=== PATIENT | female | born 1975 | race Caucasian/White ===

== ENCOUNTER 2016-10-22 09:35 | Emergency (ER) | payer OTHER ==
[2016-10-22 09:35] VITALS: BMI 25.9
[2016-10-22 09:58] VITALS: TEMP 99.4
[2016-10-22] MEDS ORDERED: Sodium Chloride 0.9% 1,000 ML IV STA (10:28)
--- NOTE | 2016-10-22 10:34 | ED PDOC ---
Arrival/HPI - General Chief Complaint: Abdominal Pain Time Seen by Provider: 10/22/16 10:19 Historian: Patient - History of Present Illness Narrative History of Present Illness (Text): 10/22/16 10:36 A 40 year old female, with a past medical history of UTI, presents to the emergency department for lower abdominal discomfort, which began 1 day ago. The patient denies any nausea, vomiting, vaginal bleeding, dysuria, or any other complaints at this time. LMP: 09/05/16 Time/Duration: 24 hours (1 day ) Symptom Course: Unchanged Activities at Onset: Rest, Light Context: Home Past Medical History - Provider Review Nursing Documentation Reviewed: Yes - Infectious Disease Hx of Infectious Diseases: None - Reproductive Menopause: No - Psychiatric Hx Substance Use: No - Surgical History Hx Section: Yes - Anesthesia Hx Anesthesia: Yes Hx Anesthesia Reactions: No Hx Malignant Hyperthermia: No Family/Social History - Physician Review Nursing Documentation Reviewed: Yes Family/Social History: No Known Family HX, Unknown Family HX Smoking Status: Never Smoked Hx Alcohol Use: No Hx Substance Use: No Allergies/Home Meds Allergies/Adverse Reactions: Allergies No Known Allergies Allergy (Verified 10/22/16 09:58) Review of Systems - Physician Review All systems were reviewed & negative as marked: Yes Physical Exam - Physical Exam Narrative Physical Exam (Text): 10/22/16 10:37 - Review of Systems Constitutional: Normal. absent: Fatigue, Weight Change, Fevers Eyes: Normal ENT: Normal Respiratory: Normal absent: SOB, Cough, Sputum Cardiovascular: Normal absent: Chest pain, Palpitations, Syncope Gastrointestinal: Positive: Abdominal pain. absent: Diarrhea, Nausea, Vomiting Genitourinary: Normal. absent: Dysuria, Frequency, Hematuria Musculoskeletal: Normal. absent: Arthralgias, Back Pain, Neck Pain Skin: Normal Neurological: Normal absent: Focal Weakness Endocrine: Normal Hemo/Lymphatic: Normal Psychiatric: Normal - Physical exam Patient appears age appropriate, speaking full sentences without difficulty - Systems Exam Head: Present: Atraumatic, Normocephalic Pupils: Present: PERRL Extraocular Muscles: Present: EOMI Conjunctiva: Present: Normal Mouth: Present: Moist Mucous Membranes Neck: Present: Normal Range of Motion. No: MIDLINE TENDERNESS, Paraspinal Tenderness Respiratory/Chest: Present: Clear to Auscultation, Good Air Exchange. No: Respiratory Distress, Accessory Muscle Use, Tachypnic Cardiovascular: Present: Regular Rate and Rhythm, Normal S1, S2, Peripheral Pulses Present. No: Murmurs Abdomen: Present: Suprapubic tender to palpitation. Normal Bowel Sounds, No: Peritoneal Signs, Rebound, Guarding, Distention Back: Present: Normal Inspection. No: Midline Tenderness, Paraspinal Tenderness Upper Extremity: Present: Normal Inspection. No: Cyanosis, Edema Lower Extremity: Present: Normal Inspection. No: Edema Neurological: Present: GCS=15, Speech Normal, cranial nerves II through XII fully intact with no cerebellar abnormality, neuro-sensory fully intact. No focal neurological deficits. Skin: Present: Warm, Dry, Normal Color. No: Rashes Lymphatic: Present: OX3, NI, NC Psychiatric: Present: Alert, Oriented x 3, Normal Insight, Normal Concentration Vital Signs Reviewed: Yes Vital Signs Temp Pulse Resp BP Pulse Ox 10/22/16 13:32 62 17 111/64 98 10/22/16 13:00 61 18 106/71 99 10/22/16 11:02 64 18 104/69 98 10/22/16 09:47 99.4 F 66 20 102/68 98 Temperature: Afebrile Blood Pressure: Normal Pulse: Regular Respiratory Rate: Normal Appearance: Positive for: Well-Appearing, Non-Toxic, Comfortable Pain Distress: None Mental Status: Positive for: Alert and Oriented X 3 Medical Decision Making ED Course and Treatment: 10/22/16 10:39 Impression: A 40 year old female with lower abdominal pain. [facility] 09/05/16. POC test positive. Pt denies vaginal bleeding or spotting. No acute findings on physical examination. Differential Diagnosis included but are not limited to: Ectopic pregancy vs. UTI Plan: -- test (Positive) -- Transvaginal Ultrasound -- Labs -- Tylenol, IV fluids -- Urinalysis -- Reassess and disposition Prior Visits: Notes and results from previous visits were reviewed. Patient was last seen in the emergency department for abdonimal pain on and was discharged home. Progress Notes: 10/22/16 14:58 UA with suspicion for UTI US shows live IUP pt in no distress and denies complaints at this time pt instructed to f/u with [facility] outpatient abd soft and tolerating PO without difficulty Pt states she understands to return to the ER right away for new or worsening symptoms or for inability to f/u with PMD or specialist as instructed. Patient states that she fully agrees with and understands discharge instructions. States that she agrees with the plan and disposition. Verbalized and repeated discharge instructions and plan. I have given the patient opportunity to ask any additional questions. Msw : Bruno Jones MD PROCEDURE: OB Pelvic Ultrasound HISTORY: , abd pain COMPARISON: None available. FINDINGS: UTERUS: Gestational sac: Single intrauterine gestation. Heart rate: 149 bpm. age (Ultrasound estimated): 6 weeks Linsey-gestational hemorrhage: None. Date of delivery (Ultrasound estimated) : 06/17/2017 Uterus measures 10 x 5.9 x 6.4 cm. Normal in size and appearance. CERVIX: Long and closed. No cervical abnormality seen. RIGHT OVARY: Measures 1.2 x 0.6 x 0.7 cm. No mass lesion. Normal flow. LEFT OVARY: Measures 2.7 x 2.0 x 2.8 cm. No solid mass. Normal flow. FREE FLUID: None. OTHER FINDINGS: None. IMPRESSION: Single viable 6 week gestation. - Lab Interpretations Lab Results: 10/22/16 11:00 10/22/16 10:47 Lab Results 10/22/16 11:00: WBC 5.8, RBC 4.24, Hgb 12.6, Hct 36.2, MCV 85.4, MCH 29.7, MCHC 34.8, RDW 12.8, Plt Count 182, MPV 9.4, Gran % 66.2, Lymph % (Auto) 26.4, [place] % (Auto) 6.7 H, Eos % (Auto) 0.5 L, Baso % (Auto) 0.2, Gran # 3.83, Lymph # 1.5 , [place] # 0.4, Eos # 0.0, Baso # 0.01 10/22/16 10:47: Urine Color Light yellow, Urine Appearance Sl cloudy, Urine pH 7.0, Ur Specific [place] 1.015, Urine Protein Negative, Urine Glucose (UA) Negative, Urine Ketones Negative, Urine Blood Small H, Urine Nitrate Negative, Urine Bilirubin Negative, Urine Urobilinogen 0.2, Ur Leukocyte Esterase Small H , Urine RBC 1 - 3, Urine WBC 1 - 3, Ur Epithelial Cells 10 - 12, Urine Bacteria Mod 10/22/16 10:47: Blood Type O POSITIVE, Antibody Screen Negative, BBK History Checked Patient has bt 10/22/16 10:47: Beta HCG, Quant 90223.00 H 10/22/16 10:47: Sodium 138, Potassium 3.5 L, Chloride 100, Carbon Dioxide 28, Anion Gap 14, BUN 8, Creatinine 0.6, Est GFR ( Amer) > 60, Est GFR (Non- Af Amer) > 60, Random Glucose 81, Calcium 9.6, Total Bilirubin 0.8, AST 20, ALT 17, Alkaline Phosphatase 45, Total Protein 7.3, Albumin 4.3, Globulin 3.0, Albumin/Globulin Ratio 1.4 10/22/16 10:47: PT 11.5, INR 1.06, APTT 27.8 I have reviewed the lab results: Yes - RAD Interpretation Radiology Orders: 10/22/16 10:32 OB TRANSVAGINAL [US] Stat - Medication Orders Current Medication Orders: Discontinued Medications Acetaminophen (Tylenol 325mg Tab) 975 mg PO STAT STA Stop: 10/22/16 10:29 Last Admin: 10/22/16 10:48 Dose: 325 mg Comments: Patient refused 975mg, took 325MG. Cleared administration safety for with pharmacy. Sodium Chloride (Sodium Chloride 0.9%) 1,000 mls @ 1,000 mls/hr IV .Q1H STA Stop: 10/22/16 11:27 Last Admin: 10/22/16 10:39 Dose: 1,000 mls/hr - PA / AUTO ELECTRICIAN / Resident Statement MD/DO has reviewed & agrees with the documentation as recorded. - Scribe Statement The provider has reviewed the documentation as recorded by the Christine Mercer Provider Scribe Attestation: All medical record entries made by the Godfreyibrolanda were at my direction and personally dictated by me. I have reviewed the chart and agree that the record accurately reflects my personal performance of the history, physical exam, medical decision making, and the department course for this patient. I have also personally directed, reviewed, and agree with the discharge instructions and disposition.? Disposition/Present on Arrival - Present on Arrival Any Indicators Present on Arrival: No History of DVT/PE: No History of Uncontrolled Diabetes: No Urinary Catheter: No History of Decub. Ulcer: No History Surgical Site Infection Following: None - Disposition Have Diagnosis and Disposition been Completed?: Yes Diagnosis: Abdominal pain affecting Disposition: HOME/ ROUTINE Disposition Time: 15:02 Patient Plan: Discharge Condition: GOOD Discharge Instructions (ExitCare): Abdominal Pain in (ED), Urinary Tract Infection in (ED) Additional Instructions: PLEASE RETURN TO THE EMERGENCY DEPARTMENT FOR NEW OR WORSENING SYMPTOMS. RETURN RIGHT AWAY IF YOU CANNOT FOLLOW UP WITH YOUR PRIMARY CARE DOCTOR, CLINIC, OR SPECIALIST IN 1-2 DAYS. Prescriptions: Nitrofurantoin Macrocrystals [Macrobid] 100 mg PO BID #14 cap Referrals: PCP,NO [Primary Care Provider] - Follow up with primary Dev Hardy [Medical Doctor] - Follow up with primary Forms: [employer] ([place])
[2016-10-22 11:06] LABS: BASO # 0.01 K/mm3 (0.0-2.0); BASO % 0.2 % (0.0-3.0); EOS % 0.5 % (1.5-5.0); GRAN # 3.83 (1.4-6.5); GRAN % 66.2 % (50.0-68.0); HEMOGLOBIN 12.6 gm/dL (12.0-16.0); LYMPH # 1.5 (1.2-3.4); LYMPH % 26.4 % (22.0-35.0); MEAN CELL VOLUME 85.4 fL (80.0-105.0); MEAN CORPUSCULAR HEMOGLOBIN 29.7 pg (25.0-35.0); MEAN CORPUSCULAR HGB CONC 34.8 g/dl (31.0-37.0); MEAN PLATELET VOLUME 9.4 fl (7.0-11.0); MONO # 0.4 (0.1-0.6); MONO % 6.7 % (1.0-6.0); PLATELET COUNT 182 10^3/uL (120.0-450.0); RBC 4.24 10^6/uL (3.5-6.1); RED CELL DISTRIBUTION WIDTH 12.8 % (11.5-14.5); WHITE BLOOD COUNT 5.8 10^3/ul (4.5-11.0)
[2016-10-22 11:10] LABS: ALB/GLOB RATIO 1.4 (1.1-1.8); ALBUMIN 4.3 g/dL (3.0-4.8); ALT/SGPT 17 U/L (7-56); AST/SGOT 20 U/L (15-39); BLOOD UREA NITROGEN 8 mg/dL (7-21); CALCIUM 9.6 mg/dL (8.4-10.5); GFR AFRICAN-AMERICAN > 60; GFR NON-AFRICAN AMERICAN > 60; URINE BILIRUBIN NEGATIVE (NEGATIVE); URINE BLOOD SMALL (NEGATIVE); URINE GLUCOSE (UA) NEGATIVE (NEGATIVE); URINE LEUKOCYTE ESTERASE SMALL Leu/uL (NEGATIVE); URINE NITRATE NEGATIVE (NEGATIVE); URINE PROTEIN NEGATIVE mg/dL (<30 mg/dL); URINE UROBILINOGEN 0.2 E.U./dL (<1 E.U./dL)
[2016-10-22 11:11] LABS: INR 1.06 (0.93-1.08); PARTIAL THROMBOPLASTIN TIME 27.8 Seconds (23.7-30.8); PROTHROMBIN TIME 11.5 Seconds (9.9-11.8); URINE APPEARANCE SL CLOUDY (CLEAR); URINE COLOR LIGHT YELLOW (YELLOW)
[2016-10-22 11:20] LABS: URINE BACTERIA MOD (NEG)
[2016-10-22 13:34] VITALS: BP 111/64; PULSE 62; RESP 17; O2SAT 98
--- NOTE | 2016-10-22 14:19 | US ---
PROCEDURE: OB Pelvic Ultrasound HISTORY: , abd pain COMPARISON: None available. FINDINGS: UTERUS: Gestational sac: Single intrauterine gestation. Heart rate: 149 bpm. age (Ultrasound estimated): 6 weeks Linsey-gestational hemorrhage: None. Date of delivery (Ultrasound estimated) : 06/17/2017 Uterus measures 10 x 5.9 x 6.4 cm. Normal in size and appearance. CERVIX: Long and closed. No cervical abnormality seen. RIGHT OVARY: Measures 1.2 x 0.6 x 0.7 cm. No mass lesion. Normal flow. LEFT OVARY: Measures 2.7 x 2.0 x 2.8 cm. No solid mass. Normal flow. FREE FLUID: None. OTHER FINDINGS: None. IMPRESSION: Single viable 6 week gestation.
== END 2016-10-22 15:10 | disposition home or self-care (01) ==
LOC: ED 09:35
DX: O26.891 Other specified pregnancy related conditions, first trimester (principal); Z3A.01 Less than 8 weeks gestation of pregnancy; R10.9 Unspecified abdominal pain
CPT/HCPCS: 76817; 80053; 81001; 84702; 85025; 85610; 85730; 86850; 86900; 87086; 96360; 99284; J7040

== ENCOUNTER 2017-04-27 09:39 | Emergency (ER) | payer OTHER ==
[2017-04-27 09:39] VITALS: BMI 25.9
[2017-04-27 10:18] VITALS: RESP 18; TEMP 98.9
[2017-04-27] MEDS ORDERED: Sodium Chloride 0.9% 1,000 ML IV STA (11:05)
--- NOTE | 2017-04-27 11:09 | ED PDOC ---
Arrival/HPI - General Chief Complaint: GI Problem Time Seen by Provider: 04/27/17 10:31 Historian: Patient - History of Present Illness Narrative History of Present Illness (Text): 04/27/17 11:05 41 year old female, at gestation of 8 months, with past medical history of UTI, presents to the Emergency department complaining of hematemesis since yesterday. Patient informs multiple episodes of vomiting with blood since yesterday. Patient informs associated mild epigastric discomfort. Patient has a positive heartbeat and movement. Patient denies any leakage or vaginal bleeding. Patient denies any fever, chills, nausea, vomiting, abdominal pain, diarrhea, chest pain, shortness of breath or any other complaints. Time/Duration: 24 hours Symptom Onset: Gradual Symptom Course: Unchanged Activities at Onset: Light Context: Home Past Medical History - Provider Review Nursing Documentation Reviewed: Yes - Infectious Disease Hx of Infectious Diseases: None - Psychiatric Hx Substance Use: No - Surgical History Hx Section: Yes - Anesthesia Hx Anesthesia: Yes Hx Anesthesia Reactions: No Hx Malignant Hyperthermia: No Family/Social History - Physician Review Nursing Documentation Reviewed: Yes Family/Social History: No Known Family HX Smoking Status: Never Smoked Hx Alcohol Use: No Hx Substance Use: No Allergies/Home Meds Allergies/Adverse Reactions: Allergies No Known Allergies Allergy (Verified 10/22/16 09:58) Home Medications: Home Meds Medication Instructions Recorded Confirmed Multivit/Folic Acid/I 1 tab PO DAILY 04/27/17 04/27/17 [ Plus] Review of Systems - Physician Review All systems were reviewed & negative as marked: Yes - Review of Systems Constitutional: Normal. absent: Fevers Eyes: Normal ENT: Normal Respiratory: Normal. absent: SOB Cardiovascular: Normal. absent: Chest Pain Gastrointestinal: Hematemesis. absent: Abdominal Pain, Diarrhea, Nausea, Vomiting Genitourinary Female: Normal. absent: Vaginal Bleeding, Vaginal Discharge Musculoskeletal: Normal Skin: Normal Neurological: Normal Endocrine: Normal Hemo/Lymphatic: Normal Psychiatric: Normal Physical Exam Vital Signs Reviewed: Yes Vital Signs Temp Pulse Resp BP Pulse Ox 04/27/17 12:57 82 18 132/72 100 04/27/17 10:13 98.9 F 78 18 106/63 98 Temperature: Afebrile Blood Pressure: Normal Pulse: Regular Respiratory Rate: Normal Appearance: Positive for: Well-Appearing, Non-Toxic, Comfortable Pain Distress: None Mental Status: Positive for: Alert and Oriented X 3 - Systems Exam Head: Present: Atraumatic, Normocephalic Pupils: Present: PERRL Extroacular Muscles: Present: EOMI Conjunctiva: Present: Normal Mouth: Present: Moist Mucous Membranes Neck: Present: Normal Range of Motion Respiratory/Chest: Present: Clear to Auscultation, Good Air Exchange. No: Respiratory Distress, Accessory Muscle Use Cardiovascular: Present: Regular Rate and Rhythm, Normal S1, S2. No: Murmurs Abdomen: Present: Tenderness (mild epigastric tenderness), Normal Bowel Sounds. No: Distention, Peritoneal Signs Back: Present: Normal Inspection Upper Extremity: Present: Normal Inspection. No: Cyanosis, Edema Lower Extremity: Present: Normal Inspection. No: Edema Neurological: Present: GCS=15, CN II-XII Intact, Speech Normal Skin: Present: Warm, Dry, Normal Color. No: Rashes Psychiatric: Present: Alert, Oriented x 3, Normal Insight, Normal Concentration Medical Decision Making ED Course and Treatment: 04/27/17 11:13 Impression: 41 year old female presents to the Emergency department for hematemesis. wendi tomlinson suspected r/o pud, gastritis, uppergi bleed Plan: -- Blood type/screen -- Labs -- Protonix -- IV fluids -- Urinalysis -- Reassess and disposition Progress Notes: 04/27/17 11:49 Guaiac test performed in the presence of female scribe as geothermal electrical engineer. Negative. 04/27/17 12:44 Leaving Against Medical Advice (AMA): The patient is choosing to leave against medical advice. I have personally explained to the patient via a measurement technician ([id number]) that choosing to do so may result in permanent bodily harm or . I have discussed at great length that without further evaluation and monitoring there may be unforeseen circumstances and/or deterioration causing permanent bodily harm or as a result of their choice. The patient is alert, oriented, and shows the mental capacity to make clear decisions regarding the patients health care at this time. The patient continues to wish to leave against medical advice as translated by the measurement technician. In light of the patients decision to leave against medical advice, follow-up has been arranged and the patient is aware of the importance to following up as instructed. The patient has been advised that they should return to the emergency room immediately if they change their mind at any time, or if their condition begins to change or worsen in any way. 04/27/17 15:01 pt offered transfer for wallace thakkar and anay arroyo. h/h stable, but pt reports " lots of blood". discussed with measurement technician, pt refuses transfer signs ama - Lab Interpretations Lab Results: 04/27/17 11:30 04/27/17 11:30 Lab Results 04/27/17 11:30: Beta HCG, Quant [id number] H 04/27/17 11:30: Blood Type O POSITIVE, Antibody Screen Negative, BBK History Checked Patient has bt 04/27/17 11:30: Sodium 138, Potassium 3.7, Chloride 103, Carbon Dioxide 26, Anion Gap 12, BUN 8, Creatinine 0.5 L, Est GFR ( Amer) > 60, Est GFR (Non -Af Amer) > 60, Random Glucose 76, Calcium 9.6, Total Bilirubin 0.4, AST 30, ALT 30, Alkaline Phosphatase 81, Total Protein 6.8, Albumin 3.6, Globulin 3.1, Albumin/Globulin Ratio 1.2, Lipase 42 04/27/17 11:30: PT 11.3, INR 0.98, APTT 24.3 L 04/27/17 11:30: WBC 12.0 H D, RBC 3.92, Hgb 12.5, Hct 36.7, MCV 93.6, MCH 31.9, MCHC 34.1, RDW 14.0, Plt Count 197, MPV 10.0, Gran % 79.4 H, Lymph % (Auto) 14.2 L, [place] % (Auto) 5.8, Eos % (Auto) 0.5 L, Baso % (Auto) 0.1, Gran # 9.52 H , Lymph # (Auto) 1.7, [place] # (Auto) 0.7 H, Eos # (Auto) 0.1, Baso # (Auto) 0.01 04/27/17 11:28: Urine Color Yellow, Urine Appearance Clear, Urine pH 6.5, Ur Specific [place] 1.015, Urine Protein Trace H, Urine Glucose (UA) Negative, Urine Ketones Negative, Urine Blood Trace-intact H, Urine Nitrate Negative, Urine Bilirubin Negative, Urine Urobilinogen 0.2, Ur Leukocyte Esterase Trace H , Urine RBC 0 - 2, Urine WBC 0 - 2, Ur Epithelial Cells 10 - 12, Urine Bacteria Few, Urine HCG, Qual Positive - Medication Orders Current Medication Orders: Discontinued Medications Sodium Chloride (Sodium Chloride 0.9%) 1,000 mls @ 999 mls/hr IV .Q1H1M STA Stop: 04/27/17 12:05 Last Admin: 04/27/17 11:30 Dose: 999 mls/hr eMAR Start Stop Document 04/27/17 11:30 RD (Rec: 04/27/17 11:41 RD [facility] [id number]) Intravenous Solution Start Date 04/27/17 Start Time 11:30 End Date 04/27/17 End time 12:30 Total Infusion Time 60 Pantoprazole Sodium (Protonix Inj) 40 mg IVP STAT STA Stop: 04/27/17 11:05 Last Admin: 04/27/17 11:42 Dose: 40 mg IVP Administration Document 04/27/17 11:42 RD (Rec: 04/27/17 11:42 RD [facility] [id number]) Charges for Administration # of IVP Administrations 1 - Scribe Statement The provider has reviewed the documentation as recorded by the Scribe Beto Browne. All medical record entries made by the Scribe were at my direction and personally dictated by me. I have reviewed the chart and agree that the record accurately reflects my personal performance of the history, physical exam, medical decision making, and the department course for this patient. I have also personally directed, reviewed, and agree with the discharge instructions and disposition. Disposition/Present on Arrival - Present on Arrival Any Indicators Present on Arrival: No History of DVT/PE: No History of Uncontrolled Diabetes: No Urinary Catheter: No History of Decub. Ulcer: No History Surgical Site Infection Following: None - Disposition Have Diagnosis and Disposition been Completed?: Yes Diagnosis: GI bleed Disposition: AGAINST MEDICAL ADVICE Disposition Time: 01:00 Condition: UNKNOWN Discharge Instructions (ExitCare): Gastrointestinal Bleeding (ED), Acute Abdominal Pain (ED), Against Medical Advice (ED) Additional Instructions: return to any er with any concern Referrals: Jean-Pierre Bangura MD [Primary Care Provider] - Follow up with primary Jakob Ramirez DO [Staff Provider] - Follow up with primary Forms: [employer] ([place])
[2017-04-27 11:49] LABS: PH,URINE 6.5 (4.7-8.0); URINE APPEARANCE CLEAR (CLEAR); URINE BILIRUBIN NEGATIVE (NEGATIVE); URINE BLOOD TRACE-INTACT (NEGATIVE); URINE COLOR YELLOW (YELLOW); URINE GLUCOSE (UA) NEGATIVE (NEGATIVE); URINE LEUKOCYTE ESTERASE TRACE Leu/uL (NEGATIVE); URINE NITRATE NEGATIVE (NEGATIVE); URINE PROTEIN TRACE mg/dL (<30 mg/dL); URINE UROBILINOGEN 0.2 E.U./dL (<1 E.U./dL)
[2017-04-27 11:52] LABS: HCG,QUALITATIVE URINE POSITIVE (NEGATIVE)
[2017-04-27 11:55] LABS: BASO # 0.01 K/mm3 (0.0-2.0); BASO % 0.1 % (0.0-3.0); EOS # 0.1 (0.0-0.7); EOS % 0.5 % (1.5-5.0); GRAN # 9.52 (1.4-6.5); GRAN % 79.4 % (50.0-68.0); HEMOGLOBIN 12.5 g/dL (12.0-16.0); LYMPH # 1.7 (1.2-3.4); LYMPH % 14.2 % (22.0-35.0); MEAN CELL VOLUME 93.6 fl (80.0-105.0); MEAN CORPUSCULAR HEMOGLOBIN 31.9 pg (25.0-35.0); MEAN CORPUSCULAR HGB CONC 34.1 g/dl (31.0-37.0); MONO # 0.7 (0.1-0.6); MONO % 5.8 % (1.0-6.0); RBC 3.92 10^6/uL (3.5-6.1)
[2017-04-27 12:04] LABS: ALB/GLOB RATIO 1.2 (1.1-1.8); ALBUMIN 3.6 g/dL (3.0-4.8); ALT/SGPT 30 U/L (7-56); AST/SGOT 30 U/L (14-36); BLOOD UREA NITROGEN 8 mg/dL (7-21); CALCIUM 9.6 mg/dL (8.4-10.5); GFR AFRICAN-AMERICAN > 60; GFR NON-AFRICAN AMERICAN > 60; LIPASE 42 U/L (23-300)
[2017-04-27 12:05] LABS: URINE BACTERIA FEW (NEG); URINE RBC 0 - 2 /hpf (0-2); URINE WBC 0 - 2 /hpf (0-6)
[2017-04-27 12:07] LABS: INR 0.98 (0.93-1.08); PARTIAL THROMBOPLASTIN TIME 24.3 Seconds (25.1-36.5); PROTHROMBIN TIME 11.3 SECONDS (9.4-12.5)
[2017-04-27 12:57] VITALS: BP 132/72; PULSE 82; O2SAT 100
== END 2017-04-27 12:56 | disposition left against medical advice (07) ==
LOC: ED 09:39
DX: O26.893 Other specified pregnancy related conditions, third trimester (principal); K92.2 Gastrointestinal hemorrhage, unspecified; Z3A.32 32 weeks gestation of pregnancy
CPT/HCPCS: 80053; 81001; 83690; 84702; 84703; 85025; 85610; 85730; 86850; 86900; 96361; 96374; 99285; C9113; J7040

== ENCOUNTER 2017-06-17 09:08 | Emergency (ER) | payer OTHER ==
[2017-06-17 09:08] VITALS: BMI 25.9
[2017-06-17 09:41] VITALS: BP 130/85; PULSE 85; RESP 19; TEMP 98.2; O2SAT 98
--- NOTE | 2017-06-17 10:02 | ED PDOC ---
Arrival/HPI - General Chief Complaint: Female Genitourinary Time Seen by Provider: 06/17/17 09:23 Historian: Patient, Neck Skewer ([id number]) - History of Present Illness Narrative History of Present Illness (Text): 06/17/17 09:50 41 year old female, who presents to the emergency department complaining of pain due to hemorrhoids in the rectum since one day ago. Patient reports recently having a (June 08, 2017) and post- bleeding is still active. She notes taking Tylenol for pain relief and currently breast feeding. Patient denies any other pain medication that will interfere with breast- feeding. She denies any blood in rectum, vomiting, fever, shortness of breath, chest pain, or other complaints. PMD: Dr. Bangura Gynocologist: Dr. Robert Time/Duration: 24 hours Symptom Onset: Gradual Symptom Course: Worsening Context: Home Past Medical History - Provider Review Nursing Documentation Reviewed: Yes - Infectious Disease Hx of Infectious Diseases: None - Genitourinary/Gynecological Other/Comment: hemorrhoid - Psychiatric Hx Substance Use: No - Surgical History Hx Section: Yes Other/Comment: recent c/s 06/12/17 - Anesthesia Hx Anesthesia: Yes Hx Anesthesia Reactions: No Hx Malignant Hyperthermia: No Family/Social History - Physician Review Nursing Documentation Reviewed: Yes Family/Social History: Unknown Family HX Smoking Status: Never Smoked Hx Alcohol Use: No Hx Substance Use: No Allergies/Home Meds Allergies/Adverse Reactions: Allergies No Known Allergies Allergy (Verified 06/17/17 09:36) Home Medications: Home Meds Medication Instructions Recorded Confirmed Multivit/Folic Acid/I 1 tab PO DAILY 04/27/17 06/17/17 [ Plus] Review of Systems - Review of Systems Constitutional: absent: Fevers ENT: absent: Sore Throat Respiratory: absent: SOB Cardiovascular: absent: Chest Pain Gastrointestinal: Other (hemorrhoids in rectum ). absent: Vomiting Genitourinary Female: absent: Dysuria Musculoskeletal: absent: Back Pain Skin: absent: Rash Neurological: absent: Headache Endocrine: absent: Diaphoresis Physical Exam Vital Signs Reviewed: Yes Vital Signs Temp Pulse Resp BP Pulse Ox 06/17/17 09:28 98.2 F 85 19 130/85 98 Temperature: Afebrile Blood Pressure: Normal Pulse: Regular Respiratory Rate: Normal Appearance: Positive for: Well-Appearing, Non-Toxic, Comfortable Pain Distress: None Mental Status: Positive for: Alert and Oriented X 3 - Systems Exam Head: Present: Atraumatic, Normocephalic Pupils: Present: PERRL Extroacular Muscles: Present: EOMI Conjunctiva: Present: Normal Mouth: Present: Moist Mucous Membranes Rectal: Present: Hemorrhoids. No: Melena, Fissures Neurological: Present: GCS=15, CN II-XII Intact, Speech Normal Skin: Present: Warm, Dry, Normal Color. No: Rashes Psychiatric: Present: Alert, Oriented x 3, Normal Insight, Normal Concentration Medical Decision Making ED Course and Treatment: 06/17/17 Impression: 41 year old female with (+) hemorrhoids in rectum, complaining of pain in rectum since one day. Plan: -- Lidocaine 2% -- Reassess and disposition Progress Notes: 06/17/17 10:37 Case discussed with certified ophthalmic surgical assistant, who is aware of plan and currently supervising the patient at bedside. 06/17/17 11:02 Supply Tech Le evaluated the patient and reduced a non-thrombosed hemorrhoids. She recommended lidocaine gel, anusol HC, and colace. Patient only wants to take tylenol for pain. She will also f/u with Dr. Clemons surgery as outpatient. Discharge instructions given by me with city administrator services Kevin Berman # [id number]. - Medication Orders Current Medication Orders: Discontinued Medications Lidocaine HCl (Xylocaine 2% (Uro-Jet)) 0 ea TOP ONCE ONE Stop: 06/17/17 10:09 - Scribe Statement The provider has reviewed the documentation as recorded by the Christine Sierra Provider Scribe Attestation: All medical record entries made by the Scribe were at my direction and personally dictated by me. I have reviewed the chart and agree that the record accurately reflects my personal performance of the history, physical exam, medical decision making, and the department course for this patient. I have also personally directed, reviewed, and agree with the discharge instructions and disposition. Disposition/Present on Arrival - Present on Arrival Any Indicators Present on Arrival: No History of DVT/PE: No History of Uncontrolled Diabetes: No Urinary Catheter: No History of Decub. Ulcer: No History Surgical Site Infection Following: None - Disposition Have Diagnosis and Disposition been Completed?: Yes Diagnosis: Hemorrhoids Disposition: HOME/ ROUTINE Disposition Time: 10:43 Patient Plan: Discharge Condition: IMPROVED Discharge Instructions (ExitCare): Hemorrhoids Additional Instructions: Ms Sanchez, thank you for letting us take care of you today. Your provider was Dr. Castellanos. You were treated for Hemorrhoids. The emergency medical care you received today was directed at your acute symptoms. If you were prescribed any medication, please fill it and take as directed. It may take several days for your symptoms to resolve. Return to the Emergency Department if your symptoms worsen, do not improve, or if you have any other problems. Please contact your doctor or call one of the physicians/clinics you have been referred to that are listed on the Patient Visit Information form that is included in your discharge packet. Bring any paperwork you were given at discharge with you along with any medications you are taking to your follow up visit. Our treatment cannot replace ongoing medical care by a primary care provider (PCP) outside of the emergency department. Thank you for allowing the [facility] team to be part of your care today. If you had an X-Ray or CT scan: A Radiologist will review the ED reading if any change in treatment is needed we will contact you. If you had a blood, urine, or wound culture: It will take several days for the results, if any change in treatment is needed we will contact you. If you had an STI test: It will take 48 hours for the results. Please call after 1 week if you have not heard back. Prescriptions: Docusate [Colace] 100 mg PO BID #60 cap Hydrocortisone 2.5% (Rectal) [Anusol-HC] 30 applic ID BID #1 tube Lidocaine 5% 1 appl TP DAILY PRN #1 tube PRN Reason: Pain, Mild (1-3) Referrals: Jean-Pierre Bangura MD [Primary Care Provider] - Follow up with primary Mike Clemons MD [Staff Provider] - Follow up with primary Forms: [place] ([place])
[2017-06-17] MEDS ORDERED: Lidocaine 2% Jelly (Uro-Jet) TOP ONE (10:08)
== END 2017-06-17 10:43 | disposition home or self-care (01) ==
LOC: ED 09:08
DX: K64.9 Unspecified hemorrhoids (principal)